=== PATIENT | female | born 1990 | race African-American/Black ===

== ENCOUNTER 2024-05-05 09:43 | Outpatient (CLI) | payer MEDICAID, SELFPAY ==
[2024-05-05 10:48] LABS: Ur HCG Qualitative* Negative (Negative)
--- NOTE | 2024-05-05 11:16 | W.ANESCHARGE ---
Anesthesia Charges Start Date/Time Anesthesia Start Date: 05/05/24 Anesthesia Start Time: 10:59 Stop Date/Time Anesthesia Stop Date: 05/05/24 Anesthesia Stop Time: 11:13
--- NOTE | 2024-05-05 11:17 | W.ANESCHARGE ---
Anesthesia Charges Start Date/Time Anesthesia Start Date: 05/05/24 Anesthesia Start Time: 10:59 Stop Date/Time Anesthesia Stop Date: 05/05/24 Anesthesia Stop Time: 11:13
== END 2024-05-05 09:44 | disposition home or self-care (01) ==
LOC: OP CLINIC 09:46
PROVIDERS: PCP Family Medicine; Visit Provider Internal Medicine Gastroenterology
DX: R10.13 Epigastric pain (principal); R13.10 Dysphagia, unspecified
CPT/HCPCS: 00731; 43239; 81025; 88305; 88342; J2704